=== PATIENT | male | born 1975 | race Caucasian/White ===

== ENCOUNTER 2017-12-14 07:54 | Emergency (ER) | payer SELFPAY ==
--- NOTE | 2017-12-14 08:53 | RAD ---
TWO VIEWS CHEST: Comparison: 04-09-16 History: Right rib pain that started two days ago after playing golf. FINDINGS: Two views of the chest show normal sized cardiomediastinal silhouette. There is no evidence of consol idation, mass, or pleural effusion. The bones are unremarkable. IMPRESSION: No evidence of acute cardiopulmonary disease. POS: [facility]
== END 2017-12-14 09:10 | disposition home or self-care (01) ==
LOC: ERS 07:54
DX: S29.011A Strain of muscle and tendon of front wall of thorax, initial encounter (principal); F41.9 Anxiety disorder, unspecified; F17.210 Nicotine dependence, cigarettes, uncomplicated; K21.9 Gastro-esophageal reflux disease without esophagitis; X50.0XXA Overexertion from strenuous movement or load, initial encounter; Y93.53 Activity, golf
CPT/HCPCS: 71046